=== PATIENT | male | born 1980 | race Caucasian/White ===

== ENCOUNTER 2020-06-14 12:32 | Day surgery (SDC) | payer OTHER ==
[~2020-06-14] VITALS: Ht 193 cm; Wt 102.3 kg
[~2020-06-14 12:32] MED LIST: BUPIVAcaine/PF 2.5 mg/ml (0.25%) 30ml vial ONE; LIDOcaine 1% 30ml preserv. free vial ONE; NO HOME MEDS; ceFAZolin 2gm in dextrose, iso 50 ML IV ONE; famotidine 20mg tablet PO ONE; ringers solution, lacted 1,000 ML IV SCH
[2020-06-14 12:38] VITALS: BP 144/94
[2020-06-14] MEDS ORDERED: fentaNYL/PF 50MCG/1 ML 2ML syringe IV PRN ×2 (12:45)
[2020-06-14] MEDS ORDERED: labetalol 20mg/4ml (5mg/ml) syringe IV PRN (12:45)
[2020-06-14] MEDS ORDERED: morphine 2 MG/ML inj. syringe IV PRN (12:45)
[2020-06-14] MEDS ORDERED: morphine 4 MG/ML inj SYRINge IV PRN (12:45)
[2020-06-14] MEDS ORDERED: ringers solution, lacted 1,000 ML IV SCH (12:45)
[2020-06-14] MEDS ORDERED: hydrALAZINE 20mg/ml inj. IV PRN (12:45)
[2020-06-14] MEDS ORDERED: ondansetron/PF 4mg/2ml inj IV PRN (12:45)
[2020-06-14] MEDS ORDERED: LIDOcaine 1% 30ml preserv. free vial ONE (13:58)
[2020-06-14] MEDS ORDERED: BUPIVAcaine/PF 2.5 mg/ml (0.25%) 30ml vial ONE (13:58)
[2020-06-14] MEDS ORDERED: glycopyrrolate 0.2mg/ml inj ONE (15:06)
[2020-06-14] MEDS ORDERED: neostigmine methylsulfate 1 MG/ML 10ml vial ONE (15:06)
[2020-06-14] MEDS ORDERED: sevoflurane 250ml liquid IH ONE (15:06)
[2020-06-14] MEDS ORDERED: fentaNYL/PF 50MCG/1 ML 2ML syringe ONE (15:16)
[2020-06-14] MEDS ORDERED: midazolam 2 mg/2 ml injection ONE (15:17)
[2020-06-14] MEDS ORDERED: ondansetron/PF 4mg/2ml inj ONE (15:18)
[2020-06-14] MEDS ORDERED: dexamethasone sod phosphate 4mg/ml inj. ONE (15:18)
[2020-06-14] MEDS ORDERED: propofol inj 20 ML IV ONE (15:19)
[2020-06-14] MEDS ORDERED: rocuronium 10mg/ml inj IV ONE (15:19)
[2020-06-14] MEDS ORDERED: LIDOcaine 2% (20mg/ml) 5ml vial ONE (15:19)
[2020-06-14 16:05] VITALS: BP 134/84
--- NOTE | 2020-06-14 16:05 | NUR ---
Received from OR via BED , accompanied by Anesthesiologist DR STEIN and report given by Anesthesiolgist. PATIENT WAKING UP, DENIES PAIN, V/S WNL, NEUROVASCULAR CHECKS INTACT, 20G PIV LUE, SCD ON, DERMABONDED TO LAP SIGHTS OF ABDOMEN CDI
[2020-06-14 16:15] VITALS: BP 135/83
[2020-06-14 16:25] VITALS: BP 134/79
[2020-06-14 16:35] VITALS: BP 131/74
[2020-06-14 16:45] VITALS: BP 137/76
--- NOTE | 2020-06-14 16:45 | NUR ---
PATIENT A&OX4, DENIES PAIN, V/S WNL, NEUROVASCULAR CHECKS INTACT, 20G PIV LUE D/C, SCD OFF, DERMABONDED TO LAP SIGHTS OF ABDOMEN CDI. I HAVE GIVEN PATIENT SCRIPT FOR PAIN AND HAVE REVIEWED D/C INSTRUCTIONS WITH PATIENT AND HE HAS VERBALIZED UNDERSTANDING. PATIENT D/C HOME WITH HIS DAD TRANSPORT WITH ALL BELONGINGS.
== END 2020-06-14 16:45 | disposition home or self-care (01) ==
LOC: PAS 12:32
PROVIDERS: ATTEND Surgery
DX: K42.0 Umbilical hernia with obstruction, without gangrene (principal); Z98.890 Other specified postprocedural states; Z72.89 Other problems related to lifestyle; Z79.899 Other long term (current) drug therapy; Z20.828 Contact with and (suspected) exposure to other viral communicable diseases; Z80.9 Family history of malignant neoplasm, unspecified
CPT/HCPCS: 36415; 49587; 80053; 82948; 85025; 87635; J1100; J2001; J2250; J2405; J2704; J3010; J3490; J7120; A4618; A7000; J2710